=== PATIENT | female | born 1990 | race Caucasian/White ===

== ENCOUNTER 2020-12-24 12:43 | Emergency (ER) | payer BC, SELFPAY ==
[2020-12-24 13:42] VITALS: BP 131/74; PULSE 81; RESP 18; TEMP 36.7; O2SAT 97; BMI 57.1
[2020-12-24 16:29] VITALS: PULSE 94; RESP 18; O2SAT 99
--- NOTE | 2020-12-24 16:30 | CTR_ITS ---
PROCEDURE INFORMATION: Exam: CT Abdomen And Pelvis With Contrast Exam date and time: 12/24/2020 4:30 PM Age: 30 years old Clinical indication: Abdominal pain; Localized; Left lower quadrant (llq); Patient HX: Llq pain, n/v, blood in stool yesterday; Additional info: Abd pain TECHNIQUE: Imaging protocol: Computed tomography of the abdomen and pelvis with contrast. Radiation optimization: All CT scans at this facility use at least one of these dose optimization techniques: automated exposure control; mA and/or kV adjustment per patient size (includes targeted exams where dose is matched to clinical indication); or iterative reconstruction. Contrast material: OMNI 300; Contrast volume: 95 ml; Contrast route: INTRAVENOUS (IV); COMPARISON: No relevant prior studies available. RADIATION DOSE METRICS: Total DLP (mGy-cm): 2708.09 FINDINGS: Lungs: Lung bases are clear. Liver: The liver is normal. Gallbladder and bile ducts: The gallbladder is normal. There is no biliary dilation. Pancreas: The pancreas is unremarkable. Spleen: The spleen is moderately enlarged. Adrenal glands: The adrenal glands are unremarkable. Kidneys and ureters: Mild left hydronephrosis and diffuse hydroureter. 3 x 3 x 3 mm obstructive stone in the distal left ureter near the ureterovesical junction. No intrarenal stones. Mild hypoenhancement of the left kidney compared to the right. The right kidney and ureter are unremarkable. Stomach and bowel: The stomach is decompressed, preventing meaningful evaluation of wall thickness. The small bowel is nondilated. The colon is unremarkable. Appendix: The appendix is normal. Intraperitoneal space: There is no free air or significant intraperitoneal free fluid. Vasculature: The aorta is unremarkable. There is no aneurysm. Lymph nodes: There is no lymphadenopathy in the retroperitoneum, mesentery, pelvis or inguinal regions. Urinary bladder: The urinary bladder is decompressed, preventing meaningful evaluation of wall thickness. Reproductive: The uterus is unremarkable. There is no adnexal mass or large cyst. Bones/joints: Bones are unremarkable. Soft tissues: The abdominal wall is intact. CT/CT abdomen pelvis w con* [id number] IMPRESSION: 1. 3 mm obstructive stone in the distal left ureter near the ureterovesical junction producing mild hydronephrosis. 2. Incidental findings above. Radiation Dose CTDIVOL = (mGy): DLP = 2708.09 (mGy-cm)
[2020-12-24 16:33] LABS: Basophils % 0.3 %; Eosinophils # 0.1 10^3/uL (0.0-0.8); Eosinophils % 0.7 %; Hematocrit 44.4 % (37.0-47.0); Hemoglobin 13.7 g/dL (11.5-15.3); Lymphocytes # 1.9 10^3/uL (0.8-4.8); Lymphocytes % 14.3 %; Mean Corpuscular HGB Conc 30.9 g/dL (30.0-36.0); Mean Corpuscular Hemoglobin 25.9 pg (28.0-34.0); Mean Corpuscular Volume 84.1 fl (81-99); Mean Platelet Volume 8.7 fL (7.4-10.4); Monocytes # 0.6 10^3/uL (0.2-0.9); Monocytes % 4.8 %; Neutrophils # 10.36 10^3/uL (1.8-7.7); Neutrophils % 79.6 %; Nucleated Red Blood Cells % 0 %; Platelet Count 352 10^3/cmm (130-400); Red Blood Count 5.28 10^6/uL (4.1-5.3); Red Cell Distribution Width 14.6 % (12.1-15.1)
[2020-12-24] MEDS: sodium chloride 0.9% 1,000 ML 999 ML IV (16:37)
[2020-12-24] MEDS: ketorolac 30 mg/mL INJ IVP (16:39)
[2020-12-24] MEDS: ondansetron 2 mg/ML SDV 2 mL 4 MG IVP (16:39)
[2020-12-24 16:59] LABS: HCG, Serum Qual Negative (Negative)
--- NOTE | 2020-12-24 17:01 | ED_ITS ---
Documented by User: Harvey Means DO 12/27/20 12:45 HPI - Abdominal Pain General: Chief Complaint: Abdominal Pain Stated Complaint: Abdominal Pain Time Seen by Provider: 12/24/20 16:27 History of Present Illness: HPI narrative: 30-year-old female left upper quadrant abdominal pain. Began last night. She states she has had this in the past its come and gone. She had a little bit of hematochezia yesterday she feels constipated today she denies any dysuria urgency or frequency or hematuria. Patient has not had any fever at all. MD elicited complaint: abdominal pain Pertinent past history: constipation Onset (ago): day(s) Pain Consistency: constant Location: LUQ Severity: moderate Quality: cramping and aching Radiation: none Migration to: no migration Exacerbating factors: nothing Relieving factors: nothing Associated Symptoms: Reports anorexia, bloating, constipation, GI cramping, nausea and poor appetite; Denies belching, change in bowel habits, change in stool character, chills, coffee ground emesis, diarrhea, dyspepsia, dysuria, excessive flatus, fever(s), heartburn, hematochezia, hematuria, hematemesis, fecal incontinence, loose stools, melena, syncope and vomiting Review of Systems Const: Denies: fever(s) or chills ENMT: Denies: throat pain, ear or mastoid pain, nasal discharge or nasal congestion Card: Denies: syncope Resp: Denies: dyspnea, productive cough or non-productive cough GI: Reports: nausea, constipation, bloating and GI cramping; Denies: vomiting, hematemesis, coffee ground emesis, heartburn, diarrhea, belching, excessive flatus, fecal incontinence, change in bowel habits, change in stool character, hematochezia or melena : Denies: dysuria or hematuria Skin/Breast: Denies: rash or pruritus PFSH ED PFSH: Family History Grandmother Breast cancer Maternal--dx age Physical Exam Const: COMMON NORMALS: no acute distress GENERAL APPEARANCE: cooperative and comfortable ORIENTATION/CONSCIOUSNESS: Yes awake, Yes oriented to person, Yes oriented to place and Yes oriented to time HENMT: COMMON NORMALS: normocephalic, atraumatic and hearing grossly normal bilaterally HEAD & SCALP: normocephalic and atraumatic Neck/C-Spine: COMMON NORMALS: no JVD Resp: COMMON NORMALS: normal respiratory effort, No retractions, No use of accessory muscles and clear to auscultation bilaterally AUSCULTATION: clear to auscultation bilaterally Cardio: COMMON NORMALS: no JVD, regular rate, regular rhythm and No murmurs present (Cardio) RATE: regular rate RHYTHM: regular rhythm GI: AUSCULTATION: Yes normoactive bowel sounds PALPATION: Yes Tenderness to palpation present (GI) Details: RUQ and No Guarding due to palpation present (GI) Extremity: COMMON NORMALS: normal to inspection, capillary refill normal, no clubbing, cyanosis or edema, no calf tenderness and no pedal edema Neuro: SENSORIUM/ORIENTATION: Yes oriented to person, Yes oriented to place and Yes oriented to time Skin: COMMON NORMALS: no rashes or lesions noted GENERAL SKIN EXAM: no rashes or lesions noted Course Vital Signs: Vital signs: Vital Signs Temperature 98.1 F 12/24/20 13:42 Pulse Rate 88 12/24/20 20:09 Respiratory Rate 16 12/24/20 20:09 Blood Pressure 127/91 12/24/20 20:09 Pulse Oximetry 97 12/24/20 20:09 MDM - Abdominal Pain MDM Narrative: Medical decision making narrative: Care turned over to dr.. Robles at change of shift see his note for final diagnosis and disposition. Lab Data: Labs: Lab Results 12/24/20 12/24/20 12/24/20 Range/Units 16:28 16:28 16:28 WBC 13.0 H (4.0-10.0) 10^3/ uL RBC 5.28 (4.1-5.3) 10^6/u L Hgb 13.7 (11.5-15.3) g/dL Hct 44.4 (37.0-47.0) % MCV 84.1 (81-99) fl MCH 25.9 L (28.0-34.0) pg MCHC 30.9 (30.0-36.0) g/dL RDW 14.6 (12.1-15.1) % Plt Count 352 (130-400) 10^3/c mm MPV 8.7 (7.4-10.4) fL Neut % (Auto) 79.6 % Lymph % (Auto) 14.3 % [place] % (Auto) 4.8 % Eos % (Auto) 0.7 % Baso % (Auto) 0.3 % Neut # (Auto) 10.36 H (1.8-7.7) 10^3/u L Lymph # (Auto) 1.9 (0.8-4.8) 10^3/u L [place] # (Auto) 0.6 (0.2-0.9) 10^3/u L Eos # (Auto) 0.1 (0.0-0.8) 10^3/u L Baso # (Auto) 0.0 (0.0-0.1) 10^3/u L Nucleated RBC % (a uto) 0 % Nucleated RBCs # 0.0 /100WBC Sodium 138 (136-145) mmol/L Potassium 4.6 (3.5-5.1) mmol/L Chloride 101 (98-107) mmol/L Carbon Dioxide 26 (22-29) mmol/L Anion Gap 15.6 (5-19) BUN 16 (6-20) mg/dL Creatinine 0.9 (0.5-0.9) mg/dL GFR Calculation 72.6 L (90-130) mL/min Glucose 101 (65-115) mg/dL Calculated Osmolal ity 287 (285-295) mOsm/k g Calcium 8.9 (8.5-10.5) mg/dL Total Bilirubin 0.3 (0.15-1.2) mg/dL AST 19 (0-32) U/L ALT 21 (0-33) U/L Alkaline Phosphata se 86 (35-105) IU/L Total Protein 7.3 (6.6-8.7) g/dL Albumin 4.1 (3.5-5.2) g/dL Globulin 3.2 (1.3-4.6) g/dL Lipase 14 (13-60) U/L HCG, Qual Negative (Negative) Urine Color (Yellow) Urine Appearance (CLEAR) Urine pH (5-7) Ur Specific Gravit y (1.005-1.030) Urine Protein (Negative) Urine Glucose (UA) (Normal) Urine Ketones (Negative) Urine Blood (Negative) Urine Nitrate (Negative) Urine Bilirubin (Negative) Urine Urobilinogen (Negative) mg/dL Ur Leukocyte Dotty ase (Negative) Urine RBC (0-2) /hpf Urine WBC (0-5) /hpf Ur Squamous Epith Cells (0-5) /hpf Amorphous Sediment Urine Bacteria (NONE) /hpf 12/24/20 Range/Units 19:22 WBC (4.0-10.0) 10^3/ uL RBC (4.1-5.3) 10^6/u L Hgb (11.5-15.3) g/dL Hct (37.0-47.0) % MCV (81-99) fl MCH (28.0-34.0) pg MCHC (30.0-36.0) g/dL RDW (12.1-15.1) % Plt Count (130-400) 10^3/c mm MPV (7.4-10.4) fL Neut % (Auto) % Lymph % (Auto) % [place] % (Auto) % Eos % (Auto) % Baso % (Auto) % Neut # (Auto) (1.8-7.7) 10^3/u L Lymph # (Auto) (0.8-4.8) 10^3/u L [place] # (Auto) (0.2-0.9) 10^3/u L Eos # (Auto) (0.0-0.8) 10^3/u L Baso # (Auto) (0.0-0.1) 10^3/u L Nucleated RBC % (a uto) % Nucleated RBCs # /100WBC Sodium (136-145) mmol/L Potassium (3.5-5.1) mmol/L Chloride (98-107) mmol/L Carbon Dioxide (22-29) mmol/L Anion Gap (5-19) BUN (6-20) mg/dL Creatinine (0.5-0.9) mg/dL GFR Calculation (90-130) mL/min Glucose (65-115) mg/dL Calculated Osmolal ity (285-295) mOsm/k g Calcium (8.5-10.5) mg/dL Total Bilirubin (0.15-1.2) mg/dL AST (0-32) U/L ALT (0-33) U/L Alkaline Phosphata se (35-105) IU/L Total Protein (6.6-8.7) g/dL Albumin (3.5-5.2) g/dL Globulin (1.3-4.6) g/dL Lipase (13-60) U/L HCG, Qual (Negative) Urine Color Yellow (Yellow) Urine Appearance Clear (CLEAR) Urine pH 6.5 (5-7) Ur Specific Gravit y 1.005 (1.005-1.030) Urine Protein 1+ H (Negative) Urine Glucose (UA) Norm (Normal) Urine Ketones Negative (Negative) Urine Blood 2+ H (Negative) Urine Nitrate Negative (Negative) Urine Bilirubin Neg (Negative) Urine Urobilinogen Norm (Negative) mg/dL Ur Leukocyte Dotty ase Negative (Negative) Urine RBC 5-10 H (0-2) /hpf Urine WBC 0-4 H (0-5) /hpf Ur Squamous Epith Cells 10-15 H (0-5) /hpf Amorphous Sediment Not Reportable Urine Bacteria 2+ H (NONE) /hpf Discharge Plan Discharge Patient Disposition: Home Clinical Impression: Kidney stone Condition: Stable Prescriptions: New hydrocodone-acetaminophen 5-325 mg tablet 1 tab PO Q6H PRN (Reason: pain) Qty: 14 RF: 0 ondansetron 4 mg tablet,disintegrating 4 mg PO Q6H PRN (Reason: nausea and vomiting) Qty: 14 RF: 0 No Action Tylenol 325 mg Tablet 325 - 650 mg PO QID MDD SEE PHARMACY COMMENT PRN (Reason: PAIN/HEADACHE) RF: 0 ibuprofen 200 mg Tablet 200 - 400 mg PO Q6H PRN (Reason: PAIN/FEVER) RF: 0 Discharge Orders: Discharge ED (Routine); Ordered 12/24/20 Ordered By: Chencho Robles Referrals: Aaron Correa DO [Primary Care Provider] - 1-3 days Discharge Diet: Advance as tolerated Discharge Activity: Resume usual activity Patient Instructions: Kidney Stones (ED), Opioid Safety Coding Level of Care Code ED Administrative Staff Supervisor for Chg Fwd Documented by User: Chencho Robles MD 12/24/20 20:12 HPI - Abdominal Pain General: Chief Complaint: Abdominal Pain Stated Complaint: Abdominal Pain Time Seen by Provider: 12/24/20 16:27 PFSH ED PFSH: Family History Grandmother Breast cancer Maternal--dx age Course Vital Signs: Vital signs: Vital Signs Temperature 98.1 F 12/24/20 13:42 Pulse Rate 88 12/24/20 20:09 Respiratory Rate 16 12/24/20 20:09 Blood Pressure 127/91 12/24/20 20:09 Pulse Oximetry 97 12/24/20 20:09 MDM - Abdominal Pain MDM Narrative: Medical decision making narrative: Patient presents here with abdominal pain CT showed a kidney stone likely causing this pain. Blood work otherwise normal. She feels much improved here. Will prescribe her pain meds and have her follow-up with Dr. Myers. She is to use his urine strainer at home. She is return if worsening. Lab Data: Labs: Lab Results 12/24/20 12/24/20 12/24/20 Range/Units 16:28 16:28 16:28 WBC 13.0 H (4.0-10.0) 10^3/ uL RBC 5.28 (4.1-5.3) 10^6/u L Hgb 13.7 (11.5-15.3) g/dL Hct 44.4 (37.0-47.0) % MCV 84.1 (81-99) fl MCH 25.9 L (28.0-34.0) pg MCHC 30.9 (30.0-36.0) g/dL RDW 14.6 (12.1-15.1) % Plt Count 352 (130-400) 10^3/c mm MPV 8.7 (7.4-10.4) fL Neut % (Auto) 79.6 % Lymph % (Auto) 14.3 % [place] % (Auto) 4.8 % Eos % (Auto) 0.7 % Baso % (Auto) 0.3 % Neut # (Auto) 10.36 H (1.8-7.7) 10^3/u L Lymph # (Auto) 1.9 (0.8-4.8) 10^3/u L [place] # (Auto) 0.6 (0.2-0.9) 10^3/u L Eos # (Auto) 0.1 (0.0-0.8) 10^3/u L Baso # (Auto) 0.0 (0.0-0.1) 10^3/u L Nucleated RBC % (a uto) 0 % Nucleated RBCs # 0.0 /100WBC Sodium 138 (136-145) mmol/L Potassium 4.6 (3.5-5.1) mmol/L Chloride 101 (98-107) mmol/L Carbon Dioxide 26 (22-29) mmol/L Anion Gap 15.6 (5-19) BUN 16 (6-20) mg/dL Creatinine 0.9 (0.5-0.9) mg/dL GFR Calculation 72.6 L (90-130) mL/min Glucose 101 (65-115) mg/dL Calculated Osmolal ity 287 (285-295) mOsm/k g Calcium 8.9 (8.5-10.5) mg/dL Total Bilirubin 0.3 (0.15-1.2) mg/dL AST 19 (0-32) U/L ALT 21 (0-33) U/L Alkaline Phosphata se 86 (35-105) IU/L Total Protein 7.3 (6.6-8.7) g/dL Albumin 4.1 (3.5-5.2) g/dL Globulin 3.2 (1.3-4.6) g/dL Lipase 14 (13-60) U/L HCG, Qual Negative (Negative) Urine Color (Yellow) Urine Appearance (CLEAR) Urine pH (5-7) Ur Specific Gravit y (1.005-1.030) Urine Protein (Negative) Urine Glucose (UA) (Normal) Urine Ketones (Negative) Urine Blood (Negative) Urine Nitrate (Negative) Urine Bilirubin (Negative) Urine Urobilinogen (Negative) mg/dL Ur Leukocyte Dotty ase (Negative) Urine RBC (0-2) /hpf Urine WBC (0-5) /hpf Ur Squamous Epith Cells (0-5) /hpf Amorphous Sediment Urine Bacteria (NONE) /hpf 12/24/20 Range/Units 19:22 WBC (4.0-10.0) 10^3/ uL RBC (4.1-5.3) 10^6/u L Hgb (11.5-15.3) g/dL Hct (37.0-47.0) % MCV (81-99) fl MCH (28.0-34.0) pg MCHC (30.0-36.0) g/dL RDW (12.1-15.1) % Plt Count (130-400) 10^3/c mm MPV (7.4-10.4) fL Neut % (Auto) % Lymph % (Auto) % [place] % (Auto) % Eos % (Auto) % Baso % (Auto) % Neut # (Auto) (1.8-7.7) 10^3/u L Lymph # (Auto) (0.8-4.8) 10^3/u L [place] # (Auto) (0.2-0.9) 10^3/u L Eos # (Auto) (0.0-0.8) 10^3/u L Baso # (Auto) (0.0-0.1) 10^3/u L Nucleated RBC % (a uto) % Nucleated RBCs # /100WBC Sodium (136-145) mmol/L Potassium (3.5-5.1) mmol/L Chloride (98-107) mmol/L Carbon Dioxide (22-29) mmol/L Anion Gap (5-19) BUN (6-20) mg/dL Creatinine (0.5-0.9) mg/dL GFR Calculation (90-130) mL/min Glucose (65-115) mg/dL Calculated Osmolal ity (285-295) mOsm/k g Calcium (8.5-10.5) mg/dL Total Bilirubin (0.15-1.2) mg/dL AST (0-32) U/L ALT (0-33) U/L Alkaline Phosphata se (35-105) IU/L Total Protein (6.6-8.7) g/dL Albumin (3.5-5.2) g/dL Globulin (1.3-4.6) g/dL Lipase (13-60) U/L HCG, Qual (Negative) Urine Color Yellow (Yellow) Urine Appearance Clear (CLEAR) Urine pH 6.5 (5-7) Ur Specific Gravit y 1.005 (1.005-1.030) Urine Protein 1+ H (Negative) Urine Glucose (UA) Norm (Normal) Urine Ketones Negative (Negative) Urine Blood 2+ H (Negative) Urine Nitrate Negative (Negative) Urine Bilirubin Neg (Negative) Urine Urobilinogen Norm (Negative) mg/dL Ur Leukocyte Dotty ase Negative (Negative) Urine RBC 5-10 H (0-2) /hpf Urine WBC 0-4 H (0-5) /hpf Ur Squamous Epith Cells 10-15 H (0-5) /hpf Amorphous Sediment Not Reportable Urine Bacteria 2+ H (NONE) /hpf Imaging Data ^: CT Abd/Pel: Attestation: I personally reviewed and interpreted this imaging study as follows: Radiologist's impression: [email or web address] [address] [address] Scan Report Signed Patient: Jenni Keller Unit #: [id number] : 1990 Age/Sex: 30 / F ADM Date: 12/24/20 Loc: ER Room/Bed: Attending Dr: Ordering Provider/Ordering MD: Harvey Means DO Date of Service: 12/24/20 Procedure(s): CT abdomen pelvis w con* [id number] Accession Number(s): [id number] Report Number: [id number] PROCEDURE INFORMATION: Exam: CT Abdomen And Pelvis With Contrast Exam date and time: 12/24/2020 4:30 PM Age: 30 years old Clinical indication: Abdominal pain; Localized; Left lower quadrant (llq); Patient HX: Llq pain, n/v, blood in stool yesterday; Additional info: Abd pain TECHNIQUE: Imaging protocol: Computed tomography of the abdomen and pelvis with contrast. Radiation optimization: All CT scans at this facility use at least one of these dose optimization techniques: automated exposure control; mA and/or kV adjustment per patient size (includes targeted exams where dose is matched to clinical indication); or iterative reconstruction. Contrast material: OMNI 300; Contrast volume: 95 ml; Contrast route: INTRAVENOUS (IV); COMPARISON: No relevant prior studies available. RADIATION DOSE METRICS: Total DLP (mGy-cm): 2708.09 FINDINGS: Lungs: Lung bases are clear. Liver: The liver is normal. Gallbladder and bile ducts: The gallbladder is normal. There is no biliary dilation. Pancreas: The pancreas is unremarkable. Spleen: The spleen is moderately enlarged. Adrenal glands: The adrenal glands are unremarkable. Kidneys and ureters: Mild left hydronephrosis and diffuse hydroureter. 3 x 3 x 3 mm obstructive stone in the distal left ureter near the ureterovesical junction. No intrarenal stones. Mild hypoenhancement of the left kidney compared to the right. The right kidney and ureter are unremarkable. Stomach and bowel: The stomach is decompressed, preventing meaningful evaluation of wall thickness. The small bowel is nondilated. The colon is unremarkable. Appendix: The appendix is normal. Intraperitoneal space: There is no free air or significant intraperitoneal free fluid. Vasculature: The aorta is unremarkable. There is no aneurysm. Lymph nodes: There is no lymphadenopathy in the retroperitoneum, mesentery, pelvis or inguinal regions. Urinary bladder: The urinary bladder is decompressed, preventing meaningful evaluation of wall thickness. Reproductive: The uterus is unremarkable. There is no adnexal mass or large cyst. Bones/joints: Bones are unremarkable. Soft tissues: The abdominal wall is intact. CT/CT abdomen pelvis w con* [id number] IMPRESSION: 1. 3 mm obstructive stone in the distal left ureter near the ureterovesical junction producing mild hydronephrosis. 2. Incidental findings above. Radiation Dose CTDIVOL = (mGy): DLP = 2708.09 (mGy-cm) Dictated By: Alvarado Farias MD Signed By: Alvarado Farias MD Signed Date/Time: 12/24/201849 DD/ 1848 Discharge Plan Discharge Patient Disposition: Home Clinical Impression: Kidney stone Condition: Stable Prescriptions: New hydrocodone-acetaminophen 5-325 mg tablet 1 tab PO Q6H PRN (Reason: pain) Qty: 14 RF: 0 ondansetron 4 mg tablet,disintegrating 4 mg PO Q6H PRN (Reason: nausea and vomiting) Qty: 14 RF: 0 No Action Tylenol 325 mg Tablet 325 - 650 mg PO QID MDD SEE PHARMACY COMMENT PRN (Reason: PAIN/HEADACHE) RF: 0 ibuprofen 200 mg Tablet 200 - 400 mg PO Q6H PRN (Reason: PAIN/FEVER) RF: 0 Discharge Orders: Discharge ED (Routine); Ordered 12/24/20 Ordered By: Chencho Robles Referrals: Aaron Correa DO [Primary Care Provider] - 1-3 days Discharge Diet: Advance as tolerated Discharge Activity: Resume usual activity Patient Instructions: Kidney Stones (ED), Opioid Safety Coding Level of Care Code ED Administrative Staff Supervisor for Chloé Botello
[2020-12-24 17:02] LABS: Alanine Aminotransferase 21 U/L (0-33); Albumin Level 4.1 g/dL (3.5-5.2); Alkaline Phosphatase 86 IU/L (35-105); Anion Gap 15.6 (5-19); Aspartate Amino Transferase 19 U/L (0-32); Blood Urea Nitrogen 16 mg/dL (6-20); Calcium 8.9 mg/dL (8.5-10.5); Carbon Dioxide 26 mmol/L (22-29); Chloride 101 mmol/L (98-107); Globulin 3.2 g/dL (1.3-4.6); Glomerular Filtration Rate 72.6 mL/min (90-130); Glucose 101 mg/dL (65-115); Lipase 14 U/L (13-60); Osmolality Calculated 287 mOsm/kg (285-295); Potassium 4.6 mmol/L (3.5-5.1); Sodium 138 mmol/L (136-145); Total Bilirubin 0.3 mg/dL (0.15-1.2); Total Protein 7.3 g/dL (6.6-8.7)
[2020-12-24 19:27] VITALS: PULSE 89; RESP 16; O2SAT 96
[2020-12-24 19:42] LABS: Add Urine Microscopic? YES; Bilirubin Urine Neg (Negative); Blood Urine 2+ (Negative); Glucose Urine UA Norm (Normal); Ketones Urine Negative (Negative); Leukocyte Esterase Urine Negative (Negative); Nitrate Urine Negative (Negative); Protein Urine 1+ (Negative); Specific Gravity, Urine 1.005 (1.005-1.030); Urine Appearance Clear (CLEAR); Urine Color Yellow (Yellow); Urobilinogen Urine Norm (Negative); WBC Urine 0-4 /hpf (0-5); pH Urine 6.5 (5-7)
[2020-12-24 19:43] LABS: Add Urine Culture? No; Bacteria Urine 2+ /hpf
[2020-12-24 20:09] VITALS: BP 127/91; PULSE 88; RESP 16; O2SAT 97
--- NOTE | 2020-12-24 20:09 | PC.NURSE ---
190 Report from DARREL Wise
--- NOTE | 2020-12-26 11:29 | DCPLANNER ---
direct marketing manager had message to schedule a follow up appointment for patient with Dr. Myers. direct marketing manager called the office of Dr. Myers, spoke with Juliana, gave clinic patients information. direct marketing manager was told that patients information would be printed and reviewed. Clinic will call patient with appointment information.
--- NOTE | 2020-12-28 08:11 | DCPLANNER ---
Patient has a follow up appointment scheduled for Thursday, January 02, 2021 at 11:[address] Myers. Clinic will call patient with appointment information.
--- NOTE | 2021-01-11 09:28 | DCPLANNER ---
Patient had a follow up scheduled for 01.02.[address] Myers - appointment was rescheduled.
== END 2020-12-24 20:11 | disposition home or self-care (01) ==
PROVIDERS: Physician Assistant; Emergency Provider Emergency Medicine; PCP Internal Medicine
DX: N20.0 Calculus of kidney (principal)
CPT/HCPCS: 74177; 80053; 81001; 83690; 84703; 85025; 96361; 96374; 96375; 99284; J1885; J2405; J7030; Q9967

== ENCOUNTER 2021-01-17 13:17 | Outpatient (CLI) | payer BC, SELFPAY ==
--- NOTE | 2021-01-17 13:30 | XR_ITS ---
WS: [id number] Exam: XR KUB [id number] Date/Time of Exam: 01/17/2021 1:23 PM Reason For Exam: urolithiasis 3 mm calcification superimposes the left kidney may represent a small renal calculus. There are 3 sma ll left pelvic calcifications noted which are nonspecific in appearance. No bowel obstruction or free air. No organ enlargement. Regional bony elements appear normal. XR/XR KUB [id number] IMPRESSION: 1. 3 mm calcification superimposing left kidney that may represent a small fatuma l stone. 2. 3 small left pelvic calcifications which are nonspecific in appearance. No a cute abdominal finding.
== END 2021-01-17 13:18 | disposition home or self-care (01) ==
PROVIDERS: PCP Internal Medicine; Visit Provider Urology
DX: N20.0 Calculus of kidney (principal)
CPT/HCPCS: 74018; 81003

== ENCOUNTER → 2021-01-18 11:00 | Outpatient (BNVA) | payer BC, SELFPAY | PROVIDERS: PCP Internal Medicine; Visit Provider Urology | DX: N20.1 Calculus of ureter (principal); Z20.822 Contact with and (suspected) exposure to COVID-19 | CPT/HCPCS: 87635 ==

== ENCOUNTER 2021-01-21 09:49 | Outpatient (CLI) | payer BC, SELFPAY ==
--- NOTE | 2021-01-21 09:56 | XR_ITS ---
WS: [id number] XR KUB [id number] REASON FOR EXAM: URETERAL CALCULUS FINDINGS: Compared to the previous examination of 01/17/2021 and correlating with the CT scan of 12/24/2020 there has been a change in the configuration of the 3 calcifications in the left pelvis. The most inferior of these likely represents further distal migration of distal left ureteral calculus. No other significant abnormality is identified. XR/XR KUB [id number] IMPRESSION: Further distal migration of distal left ureteral calculus.
== END 2021-01-21 09:50 | disposition home or self-care (01) ==
LOC: RAD 09:53
PROVIDERS: PCP Internal Medicine; Visit Provider Urology
DX: N20.1 Calculus of ureter (principal)
CPT/HCPCS: 74018; 81003

== ENCOUNTER → 2021-01-24 11:20 | Day surgery (SDC) | payer BC, SELFPAY ==
[2021-01-23 12:14] VITALS: BMI 58.3
--- NOTE | 2021-01-24 11:29 | XR_ITS ---
WS: [id number] XR KUB [id number] REASON FOR EXAM: Preop left ureteroscopy FINDINGS: On the previous abdomen and pelvis examination. Calcifications are seen in the left mid and lower pel vis. The most distal was felt to represent previously diagnosed distal left ureteral calculus. On the current examination only the 2 more superior calcifications remain readily identifiable positi on is unchanged compared to the previous examinations. XR/XR KUB [id number] IMPRESSION: Third calcification in the left pelvis presumed to be the distal left ureteral calculus is no longer identifiable.
[2021-01-24 11:53] VITALS: BP 159/92; PULSE 100; RESP 16; TEMP 36.6; O2SAT 100
[2021-01-24] MEDS: sodium chloride 0.9% 1,000 ML 30 ML IV (11:55)
[2021-01-24 11:58] LABS: OR HCG Qualitative Urine Negative (Negative)
--- NOTE | 2021-01-24 12:21 | W.PM.OPSUD ---
Surgery/Procedure H&P Update DATE OF PROCEDURE: January 24, 2021 DATE H&P PERFORMED: 01/21/21 H&P UPDATE INFORMATION: I have reviewed H&P completed within last 30 days, I have examined patient prior to procedure and Changes to prior documentation as noted here CHANGES TO PREVIOUS DOCUMENTATION: Reviewed her preoperative KUB and could not see the stone that had been visible on all the other images. She did have an episode where she lost control of her urine with severe urgency much more than usual and that would have been the only time that she had not strain her urine. It occurred at night and in the dark. Offered her the option to continue with ureteroscopy to confirm presence or absence and treat if present versus holding on surgery and repeating a KUB in a couple weeks or sooner if her symptoms recur. She has been asymptomatic for 2 days and she is elected therefore to go ahead and cancel surgery with follow-up in 2 weeks with a KUB. Encouraged to call back if she is having problems prior to that time PREOP DIAGNOSIS: Refractory left distal ureteral stone PLANNED PROCEDURE: Operation Date: 01/24/21 13:10 Proposed Procedures p Laser Lithotripsy 33277 [id number] 20916 N20.1(Not Applicable) - Antelmo Myers MD s Cystoscopy(Not Applicable) - Antelmo Myers MD s Retrograde Pyelogram(Left) - Antelmo Myers MD s Ureteroscopy(Not Applicable) - Antelmo Myers MD s Ureteral Stent Placement(Not Applicable) - Antelmo Myers MD
--- NOTE | 2021-01-24 12:45 | SUR.PREOP ---
1220 DR MANDEL HERE AND LOOKING AT KUB IN ROOM AND NO STONE SEEN,ASKED PT IF SHE PASSED IT AND SHE STATED THAT SHE DIDN'T THAT SHE KNEW OF, PT STATED THAT SHE HAD BEEN STRAINING HER URINE UP UNTIL SURGERY BUT ON THURSDAY SHE DIDN'T MAKE IT TO BATHROOM AND VOIDED ON HERSELF,PT IS NOT HAVING ANY PAIN AND GIVEN 2 CHOICES TO HAVE SX AND POSSIBLY NOT SEE NO STONE OR TO NOT HAVE SURGERY AND WAIT IF U DEVELOP ANY SYMPTOMS,PT STATED THAT SHE WANTED TO NOT HAVE SX, IV D/DIANA ALL INTACT AND PT UP IN ROOM AND D/C FOR HOME AMBULATING WITH ,LIDYA KWOK,DARREL (OR NURSE NOTIFIED)
== END ==
PROVIDERS: PCP Internal Medicine; Visit Provider Urology
PROC: 0TJB8ZZ Inspection of Bladder, Via Natural or Artificial Opening Endoscopic (ICD-10-PCS; CPT 52000; 2021-01-24 18:00)
PROC: (CPT 74420; 2021-01-24 18:00)
PROC: 0TJ98ZZ Inspection of Ureter, Via Natural or Artificial Opening Endoscopic (ICD-10-PCS; CPT 52351; 2021-01-24 18:00)
PROC: (CPT 50605; 2021-01-24 18:00)
DX: N20.1 Calculus of ureter (principal)
CPT/HCPCS: 74018; 81025; 84703; J7030

== ENCOUNTER → 2021-05-29 15:05 | Outpatient (BNVA) | payer OTHER, SELFPAY | PROVIDERS: PCP Internal Medicine; Visit Provider Nurse Practitioner Women's Health | DX: Z01.419 Encounter for gynecological examination (general) (routine) without abnormal findings (principal) | CPT/HCPCS: 87624 ==

== ENCOUNTER → 2021-06-05 15:59 | Outpatient (BNVA) | payer OTHER, SELFPAY | PROVIDERS: PCP Internal Medicine; Visit Provider Nurse Practitioner Women's Health | DX: E28.2 Polycystic ovarian syndrome (principal) | CPT/HCPCS: 81025; 88305 ==

== ENCOUNTER → 2021-11-19 16:16 | Outpatient (BNVA) | payer OTHER, SELFPAY | PROVIDERS: PCP Internal Medicine; Visit Provider Nurse Practitioner Women's Health | DX: N91.2 Amenorrhea, unspecified (principal) | CPT/HCPCS: 82670; 83001; 84702 ==

== ENCOUNTER → 2021-11-29 15:48 | Outpatient (BNVA) | payer OTHER, SELFPAY | PROVIDERS: PCP Internal Medicine; Visit Provider Nurse Practitioner Women's Health | DX: E28.2 Polycystic ovarian syndrome (principal); N94.10 Unspecified dyspareunia | CPT/HCPCS: 76830 ==

== ENCOUNTER → 2021-12-09 15:41 | Outpatient (BNVA) | payer OTHER, SELFPAY | PROVIDERS: PCP Internal Medicine; Visit Provider Obstetrics & Gynecology | DX: N91.2 Amenorrhea, unspecified (principal) | CPT/HCPCS: 83036; 83525; 84443 ==

== ENCOUNTER 2024-09-05 15:30 | Observation (INO) | payer BC, SELFPAY ==
[2024-09-05] VITALS (8 sets, daily range): BP systolic 111–136; BP diastolic 68–84; PULSE 70–91; RESP 16–18; TEMP 36.7–36.8; O2SAT 96–98; BMI 53.1
[2024-09-05 16:32] LABS: Basophils # 0.1 10^3/uL (0.0-0.1); Basophils % 0.5 %; Eosinophils # 0.2 10^3/uL (0.0-0.8); Eosinophils % 1.2 %; Hematocrit 44.1 % (36-47); Lymphocytes # 2.2 10^3/uL (0.8-4.8); Lymphocytes % 17.6 %; Mean Corpuscular HGB Conc 31.5 g/dL (30-55); Mean Corpuscular Hemoglobin 28.2 pg (27-33); Mean Corpuscular Volume 89.5 fl (85-98); Mean Platelet Volume 8.9 fL (7.4-10.4); Monocytes # 0.6 10^3/uL (0.2-0.9); Monocytes % 4.9 %; Neutrophils # 9.26 10^3/uL (1.8-7.7); Neutrophils % 75.5 %; Nucleated Red Blood Cells % 0 %; Platelet Count 291 10^3/cmm (157-399); Red Blood Count 4.93 10^6/uL (3.85-5.65); Red Cell Distribution Width 13.3 % (12.1-15.1); White Blood Count 12.27 10^3/uL (3.29-11.43)
[2024-09-05 16:51] LABS: HCG, Serum Qual Negative (Negative)
[2024-09-05 16:52] LABS: Alanine Aminotransferase 21 U/L (0-33); Albumin Level 3.9 g/dL (3.5-5.2); Alkaline Phosphatase 63 U/L (35-105); Aspartate Amino Transferase 15 U/L (0-32); Blood Urea Nitrogen 11 mg/dL (6-20); Calcium 9.2 mg/dL (8.5-10.5); Carbon Dioxide 23 mmol/L (22-29); Chloride 103 mmol/L (98-107); Creatinine Clr Calc Pharmacy 182.2546; Globulin 2.9 g/dL (1.3-4.6); Glomerular Filtration Rate 113.1 mL/min (90-130); Glucose 91 mg/dL (65-115); Lipase 19 U/L (13-60); Osmolality Calculated 285 mOsm/kg (285-295); Sodium 138 mmol/L (136-145); Total Bilirubin 0.4 mg/dL (0.15-1.2); Total Protein 6.8 g/dL (6.6-8.7)
--- NOTE | 2024-09-05 16:54 | CTR_ITS ---
PROCEDURE INFORMATION: Exam: CT Abdomen And Pelvis With Contrast Exam date and time: 09/05/2024 5:25 PM Age: 34 years old Clinical indication: Abdominal pain; Generalized; Prior surgery; Surgery date: 6+ months; Surgery type: Hysterectomy; Additional info: Abd pain TECHNIQUE: Imaging protocol: Computed tomography of the abdomen and pelvis with contrast. Radiation optimization: All CT scans at this facility use at least one of these dose optimization techniques: automated exposure control; mA and/or kV adjustment per patient size (includes targeted exams where dose is matched to clinical indication); or iterative reconstruction. Contrast material: OMNIPAQUE 350; Contrast volume: 100 ml; Contrast route: INTRAVENOUS (IV); COMPARISON: CT abdomen pelvis w con* [id number] 12/24/2020 6:02 PM RADIATION DOSE METRICS: Total DLP (mGy-cm): 1305.93 FINDINGS: Liver: Normal. No mass. Gallbladder and biliary ducts: Normal. No calcified stones. No ductal dilation. Pancreas: Normal. No ductal dilation. Spleen: Normal. No splenomegaly. Adrenal glands: Normal. No mass. Kidneys and ureters: Normal. No hydronephrosis. Stomach and bowel: Unremarkable. No obstruction. No mucosal thickening. Appendix: Acute appendicitis. The appendix is enlarged measuring up to 14 mm in diameter with adjacent fat stranding. Intraperitoneal space: Unremarkable. No free air. No significant fluid collection. Vasculature: Unremarkable. No abdominal aortic aneurysm. Lymph nodes: Unremarkable. No enlarged lymph nodes. Urinary bladder: Unremarkable as visualized. Reproductive: Unremarkable as visualized. Bones/joints: Unremarkable. No acute fracture. Soft tissues: Unremarkable. Other findings: No abscess. CT/CT abdomen pelvis w con* [id number] IMPRESSION: 1. Acute appendicitis. The appendix is enlarged measuring up to 14 mm in diameter with adjacent fat stranding. 2. No abscess.
--- NOTE | 2024-09-05 16:55 | ED_ITS ---
HPI - Abdominal Pain 2 General: Chief Complaint: Abdominal Pain Stated Complaint: Rad carmichael abd pain Time Seen by Provider: 09/05/24 16:48 Source: patient Mode of arrival: ambulatory Limitations: no limitations History of Present Illness: 34-year-old female states she has been h aving abdominal pain throughout the day states has been a sharp pain in her right lower quadrant states the pain is currently an 8 out of 10 she denies any fevers state is worse with palpation improved with rest. Associated Symptoms: Denies chills, diarrhea, fever(s), nausea and vomiting Related Data Home Medications ?Medication ?Instructions ?Recorded ?Confirmed acetaminophen 325 mg tablet 325 - 650 mg PO QID PRN 09/04/22 (Tylenol) PAIN/HEADACHE ibuprofen 200 mg tablet 200 - 400 mg PO Q6H PRN PAIN /FEVER 12/24/20 09/04/22 Previous Rx's ?Medication ?Instructions ?Recorded medroxyprogesterone 10 mg tablet 10 mg PO DAILY #30 ta bs 12/09/21 (Provera) albuterol sulfate 90 mcg/actuation 2 puff inhalation Q 6H PRN dyspnea 09/04/22 aerosol inhaler #6.7 grams azithromycin 250 mg tablet See Rx Instructions PO .COM PLEX #6 09/04/22 tabs prednisone 20 mg tablet 40 mg (2 x 20 mg) PO DAILY 5 days 09/04/22 #10 tabs Allergies Allergy/AdvReac Type Severity Reaction Status Date / Time No Known Allergies Allergy Verified 09/05/24 15:57 Review of Systems 2 Const: Denies: fever(s), chills, body aches or change in appetite ENMT: Denies: throat pain or dental pain Card: Denies: chest pain Resp: Denies: dyspnea GI: Reports: abdominal pain; Denies: nausea, vomiting or diarrhea Musc: Denies: neck pain or back pain Skin/Breast: Denies: rash Neuro: Denies: headache(s) PFSH ED 2 PFSH: Medical History No pertinent past medical history neghx: htn,dm,thyroid,dvt/pe PCP: Aaron Correa Cervical intraepithelial neoplasia grade 3 PCOS (polycystic ovarian syndrome) Dyspareunia in female Adhesions of cervix Morbid obesity Left ureteral calculus Surgical History History of hysteroscopy (~11/24/17) with D&C -----Diag: Cervical adhesions, Cervical stenosis, Secondary amenorrhea. Performed by Dr. Albert Sanderson at [facility] in [place], [place]. Findings: Had complete closure of cervical os due to prior LEEP. Retained menstrual blood found on opening of the cervix. History of ankle surgery Family History Grandmother Breast cancer MGM -- unsure of age of dx Denies family history of Colon cancer Ovarian cancer Diabetes Heart disease Hypercholesteremia Hypertension Uterine cancer Thyroid disease Stroke Physical Exam 2 Const: COMMON NORMALS: no acute distress, patient oriented x3 and healthy appearing HENMT: COMMON NORMALS: normocephalic and atraumatic HEAD & SCALP: n ormocephalic and atraumatic Eye: COMMON NORMALS: conjunctivae normal CONJUNCTIVA: Yes conjunctivae normal Neck/C-Spine: COMMON NORMALS: full ROM and supple Chest: COMMONS NORMALS: normal inspection of the chest Resp: COMMON NORMALS: normal respiratory effort Cardio: COMMON NORMALS: regular rate, regular rhythm and No murmurs present (Cardio) RATE: regular rate RHYTHM: regular rhythm GI: COMMON NORMALS: Normal to inspection, nondistended, normoactive bowel sounds present, Soft to palpation and no masses PALPATION: Yes Soft to palpation and Yes Tenderness to palpation present (GI) Details: RLQ Extremity: COMMON NORMALS: normal to inspection and full ROM Neuro: COMMON NORMALS: patient oriented x3, moves all extremities and no focal motor deficits Psych: COMMON NORMALS: mental status grossly normal, Normal thought process present and cooperative THOUGHT PROCESS: Normal thought process present Skin: COMMON NORMALS: no rashes or lesions noted and no wounds GENERAL SKIN EXAM: no rashes or lesions noted Course 2 Vital Signs: Vital signs: Vital Signs Temperature 98.1 F 09/05/24 15:52 Pulse Rate 84 09/05/24 18:44 Blood Pressure 111/68 09/05/24 15:52 Pulse Oximetry 97 09/05/24 18:44 Oxygen Delivery Me thod Room Air 09/05/24 15:52 MDM - Abdominal Pain Medical Decision Making Patient presents here with abdominal pain CT does show appendicitis I spoke to surgeon will admit at this time. Will start antibiotics Medical Records I reviewed the patient's medical records. Lab Data I reviewed the patient's lab results. 09/05/24 16:21 09/05/24 16:21 Labs/Radiology: Radiology Impressions Abdomen/Pelvis CT 09/05/24 16:54 IMPRESSION: 1. Acute appendicitis. The appendix is enlarged measuring up to 14 mm in diameter with adjacent fat stranding. 2. No abscess. ADDENDUM: 09/05/24 1838 THIS REPORT CONTAINS FINDINGS THAT MAY BE CRITICAL TO PATIENT CARE. The findings were verbally communicated via telephone conference with TATY Gaitan at 6:36 PM CDT on 09/05/2024. The findings were acknowledged and understood. Laboratory Results WBC 12.27 10^3/uL (3.29-11.43) H 09/05/24 16:21 RBC 4.93 10^6/uL (3.85-5.65) 09/05/24 16:21 Hgb 13.90 g/dL (11.27-16.99) 09/05/24 16:21 Hct 44.1 % (36-47) 09/05/24 16:21 MCV 89.5 fl (85-98) 09/05/24 16:21 MCH 28.2 pg (27-33) 09/05/24 16:21 MCHC 31.5 g/dL (30-55) 09/05/24 16:21 RDW 13.3 % (12.1-15.1) 09/05/24 16:21 Plt Count 291 10^3/cmm (157-399) 09/05/24 16:21 MPV 8.9 fL (7.4-10.4) 09/05/24 16:21 Neut % (Auto) 75.5 % 09/05/24 16:21 Lymph % (Auto) 17.6 % 09/05/24 16:21 [place] % (Auto) 4.9 % 09/05/24 16:21 Eos % (Auto) 1.2 % 09/05/24 16:21 Baso % (Auto) 0.5 % 09/05/24 16:21 Neut # (Auto) 9.26 10^3/uL (1.8-7.7) H 09/05/24 16:21 Lymph # (Auto) 2.2 10^3/uL (0.8-4.8) 09/05/24 16:21 [place] # (Auto) 0.6 10^3/uL (0.2-0.9) 09/05/24 16:21 Eos # (Auto) 0.2 10^3/uL (0.0-0.8) 09/05/24 16:21 Baso # (Auto) 0.1 10^3/uL (0.0-0.1) 09/05/24 16:21 Nucleated RBC % (auto) 0 % 09/05/24 16:21 Nucleated RBCs # 0.0 /100WBC 09/05/24 16:21 Sodium 138 mmol/L (136-145) 09/05/24 16:21 Potassium 4.0 mmol/L (3.5-5.1) 09/05/24 16:21 Chloride 103 mmol/L (98-107) 09/05/24 16:21 Carbon Dioxide 23 mmol/L (22-29) 09/05/24 16:21 Anion Gap 16.0 (5-19) 09/05/24 16:21 BUN 11 mg/dL (6-20) 09/05/24 16:21 Creatinine 0.6 mg/dL (0.5-0.9) 09/05/24 16:21 GFR Calculation 113.1 mL/min (90-130) 09/05/24 16:21 Glucose 91 mg/dL (65-115) 09/05/24 16:21 Calculated Osmolality 285 mOsm/kg (285-295) 09/05/24 16:21 Calcium 9.2 mg/dL (8.5-10.5) 09/05/24 16:21 Total Bilirubin 0.4 mg/dL (0.15-1.2) 09/05/24 16:21 AST 15 U/L (0-32) 09/05/24 16:21 ALT 21 U/L (0-33) 09/05/24 16:21 Alkaline Phosphatase 63 U/L (35-105) 09/05/24 16:21 Total Protein 6.8 g/dL (6.6-8.7) 09/05/24 16:21 Albumin 3.9 g/dL (3.5-5.2) 09/05/24 16:21 Globulin 2.9 g/dL (1.3-4.6) 09/05/24 16:21 Lipase 19 U/L (13-60) 09/05/24 16:21 HCG, Qual Negative (Negative) 09/05/24 16:21 Urine Color Dark yellow (Yellow) A 09/05/24 16:30 Urine Appearance Cloudy (CLEAR) A 09/05/24 16:30 Urine pH 5.5 (5-7) 09/05/24 16:30 Ur Specific [place] 1.028 (1.005-1.030) 09/05/24 16:30 Urine Protein Trace (Negative) A 09/05/24 16: Urine Glucose (UA) Negative (Normal) 09/05/24 16: Urine Ketones Trace (Negative) 09/05/24 16:30 Urine Blood Negative (Negative) 09/05/24 16:30 Urine Nitrate Negative (Negative) 09/05/24 16:30 Urine Bilirubin 1+ (Negative) H 09/05/24 16:30 Urine Urobilinogen 1.0 mg/dL (Negative) 09/05/24 16:30 Ur Leukocyte Esterase Negative (Negative) 09/05/24 16:30 Urine RBC 6-10 /hpf (0-2) 09/05/24 16:30 Urine WBC 6-10 /hpf (0-5) 09/05/24 16:30 Ur Squamous Epith Cells 21-50 /hpf (0-5) H 09/05/24 16:30 Amorphous Sediment Not Reportable 09/05/24 16:30 Urine Bacteria 1+ /hpf (NONE) H 09/05/24 16:30 Hyaline Casts 7.85 /lpf 09/05/24 16:30 Urine Mucus 2+ /hpf 09/05/24 16:30 All radiology interpretation(s) finalized by discharge Discharge Plan Discharge Condition: Stable Coding Level of Care Code ED Registered Nurse Behavioral Health for Chloé Botello
[2024-09-05 17:01] LABS: Bilirubin Urine 1+ (Negative); Blood Urine Negative (Negative); Glucose Urine UA Negative (Normal); Ketones Urine Trace (Negative); Leukocyte Esterase Urine Negative (Negative); Nitrate Urine Negative (Negative); Protein Urine Trace (Negative); Specific Gravity, Urine 1.028 (1.005-1.030); Urine Appearance Cloudy (CLEAR); Urine Color Dark Yellow (Yellow); pH Urine 5.5 (5-7)
[2024-09-05 17:04] LABS: Add Urine Microscopic? YES; Hyaline Casts Urine 7.85 /lpf; Squamous Epithelial Cell Urine 21-50 /hpf (0-5)
[2024-09-05] MEDS: morphine 4 mg/mL SDV 1 mL IVP ×3 (17:06→22:38)
[2024-09-05] MEDS: ondansetron 2 mg/ML SDV 2 mL 4 MG IVP (17:06)
[2024-09-05 17:27] LABS: Bacteria Urine 1+ /hpf; Mucus Urine 2+ /hpf
[2024-09-05] MEDS: iohexol 350 mg/mL 500 mL Btl (per mL) IV (17:27)
[2024-09-05] MEDS: piperacillin-tazobactam 3.375 GM in sodium chloride 0.9% (plus) 50 ML IV (19:08)
--- NOTE | 2024-09-05 20:47 | P.HP_ITS ---
Providers/Chief Complaint 2 Admitting Physician: Rufus Parker MD Chief Complaint: Rad Jones sent, abd pain History of Present Illness Jenni Keller is a 34 year old female who presented with acute uncomplicated appendicitis. Patient reported right lower quadrant pain. Some nausea. Medications/Allergies Home Medications ?Medication ?Instructions ?Recorded ?Confirmed ?Last Taken ?Type acetaminophen 325 mg tablet 325 - 650 mg PO QID PRN 09/04/22 12/24/20 History (Tylenol) PAIN/HEADACHE ibuprofen 200 mg tablet 200 - 400 mg PO Q6H PRN PAIN /FEVER 12/24/20 09/04/22 Unknown History medroxyprogesterone 10 mg tablet 10 mg PO DAILY #30 ta bs 12/09/21 09/04/22 Unknown Rx (Provera) albuterol sulfate 90 mcg/actuation 2 puff inhalation Q 6H PRN dyspnea 09/04/22 09/04/22 Unknown Rx aerosol inhaler #6.7 grams azithromycin 250 mg tablet See Rx Instructions PO .COM PLEX #6 09/04/22 09/04/22 Unknown Rx tabs prednisone 20 mg tablet 40 mg (2 x 20 mg) PO DAILY 5 days 09/04/22 09/04/22 Unknown Rx #10 tabs Allergies Allergy/AdvReac Type Severity Reaction Status Date / Time No Known Allergies Allergy Verified 09/05/24 15:57 PFSH Acute 2 PFSH: Medical History No pertinent past medical history neghx: htn,dm,thyroid,dvt/pe PCP: Aaron Correa Cervical intraepithelial neoplasia grade 3 PCOS (polycystic ovarian syndrome) Dyspareunia in female Adhesions of cervix Morbid obesity Left ureteral calculus Surgical History History of hysteroscopy (~11/24/17) with D&C -----Diag: Cervical adhesions, Cervical stenosis, Secondary amenorrhea. Performed by Dr. Albert Sanderson at [facility] in [place], [place]. Findings: Had complete closure of cervical os due to prior LEEP. Retained menstrual blood found on opening of the cervix. History of ankle surgery Family History Grandmother Breast cancer MGM -- unsure of age of dx Denies family history of Colon cancer Ovarian cancer Diabetes Heart disease Hypercholesteremia Hypertension Uterine cancer Thyroid disease Stroke Vitals/I&O/Wt Last Vital Signs Temp 98.1 F 09/05/24 15:52 Pulse 89 09/05/24 20:37 Resp 16 09/05/24 20:37 BP 136/78 09/05/24 20:37 Pulse Ox 97 09/05/24 20:37 O2 Del Method Room Air 09/05/24 19:37 09/05/24 09/05/24 09/05/24 06:59 14:59 22:59 Intake Total 50 / 50 Balance 50 / 50 Weight last 48 hrs Weight 310 lb Physical Exam 2 Narrative: Chest: Unlabored breathing room air. No lymphadenopathy. Heart: Regular rate and rhythm. Abdomen: Soft, tender right lower quadrant, nondistended. No masses or lymphadenopathy. Data 09/05/24 16:21 09/05/24 16:21 A&P Assessment and plan (1) Acute appendicitis: Plan 34-year-old female who presents with acute uncomplicated appendicitis. Discussed risk and benefits and patient agrees to proceed with laparoscopic appendectomy possible open. PDMP PDMP Reviewed: Not Reviewed Attestations 2 Medical Necessity Statement*: IV antibiotics, IV fluids Coding Level of Care Code 56496 Diagnoses Acute appendicitis K35.80
[2024-09-05] MEDS: sodium chloride 0.9% 1,000 ML 100 ML IV (21:10)
[2024-09-06] VITALS (14 sets, daily range): BP systolic 94–134; BP diastolic 58–87; PULSE 74–89; RESP 11–18; TEMP 36.4–37.2; O2SAT 93–98
[2024-09-06] MEDS: piperacillin-tazobactam 3.375 GM in sodium chloride 0.9% (plus) 50 ML IV ×3 (00:50→16:33)
[2024-09-06] MEDS: morphine 4 mg/mL SDV 1 mL IVP ×3 (07:08→16:33)
--- NOTE | 2024-09-06 07:47 | P.PN_ITS ---
Subjective 2 Subjective: Right lower quadrant pain OR today Vitals/I&O/Wt Last Vital Signs Temp 98.1 F 09/06/24 03:32 Pulse 80 09/06/24 03:32 Resp 16 09/06/24 07:08 BP 128/86 09/06/24 03:32 Pulse Ox 97 09/06/24 03:32 O2 Del Method Room Air 09/05/24 21:18 09/05/24 09/06/24 09/06/24 22:59 06:59 14:59 Intake Total 50 / 50 50 / 100 Balance 50 / 50 50 / 100 Weight last 48 hrs Weight 310 lb 4 oz Weight 310 lb Weight 310 lb Physical Exam 2 Narrative: Chest: Unlabored breathing room air. No lymphadenopathy. Heart: Regular rate and rhythm. Abdomen: Soft, tender right lower quadrant, nondistended. No masses or lymphadenopathy. Data 09/05/24 16:21 09/05/24 16:21 A&P Assessment and plan (1) Acute appendicitis: Plan 34-year-old female admitted with acute uncomplicated appendicitis. Proceeding with laparoscopic appendectomy possible open today. PDMP PDMP Reviewed: Not Reviewed Attestations 2 Medical Necessity Statement*: IV fluids, IV antibiotics, IV pain meds. Anticipating less than 24 hours observation Coding Level of Care Code 11838 Diagnoses Acute appendicitis K35.80
[2024-09-06] MEDS: sodium chloride 0.9% 1,000 ML 100 ML IV (08:22)
--- NOTE | 2024-09-06 10:03 | PC.CHAP ---
Pastoral Care Encounter/Spiritual Assessment Type of Contact [] Declined telephone technician visit [] Patient/Family/Request visit [] Outpatient visit [] Follow-up visit [] Physician referral [] Code/Alert [x] Routine visit [] Staff referral [] Actively dying [] Patient sleeping [] Family support [] [] Out of room [] Palliative care [] [] Receiving care in room [] Pre-surgical visit [] Trauma [] Long length of stay [] ICU visit [] Other: Relational/Emotional Strength [x] Patient feels connected with others/family/visitors/staff [] Distress [] Loneliness/isolation [] Abandonment Spirituality of Patient [] Person of Sivan [] Attends Mormon of their Sivan [] Believes in Prayer [] Reads Bible or Mu-Ism materials [x] There are Spiritual issues to be addressed Mobile Solutions Architect Interventions [] Prayer [x] Active listening [x] Non-anxious presence [] Spiritual/emotional support [] Crisis/trauma care [] Spiritual counseling [] Bereavement support [] Provided bereavement packet [] Provided Bible/devotional materials [] Provided toy/stuffed animal, coloring book to patient or family member [] Provided Communion [] Anointing/[place] [] Salvation [x] Completed spiritual assessment [] Other: Impact on Illness or Injury [] Angry [] Fearful [] Anxious [] Often cries [] Exhaustion [] Unable to work [] Unable to attend oriental orthodox [] Unable to walk/stand [] Unable to read [] Unable to drive [] Unable to eat/drink [] Unable to sleep [] Unable to be with family [] Patient intubated [] Other: Summary Time spent with patient 5 min
--- NOTE | 2024-09-06 10:09 | ANES.PREANE2 ---
Pre-Anesthetic Assessment Height/Weight: Height 5 ft 4 in Weight 310 lb 4 oz Temp Pulse Resp BP Pulse Ox O2 Del Method 98.7 F 83 16 98/61 95 Room Air 09/06/24 07:30 09/06/24 07:30 09/06/24 07:30 09/06/24 07:30 09/06/24 07:30 09/06/24 07:30 Preop Diagnosis: Acute appendicitis Operation Date: 09/06/24 12:10 Proposed Procedures p Laparoscopic Appendectomy(Not Applicable) - Rufus Parker MD Was Beta Artemio taken within 24 hours: N/A Was Clonidine taken within 24 hours: N/A Last intake: Intake Last Liquid Date 09/05/24 Last Solid Date 09/04/24 Social Tobacco and No alcohol Exam alert, oriented x 3, clear to auscultation bilaterally and regular rate & rhythm Airway Submandibular: within normal limits Cervical ROM: within normal limits Mallampati: Class III Dentition: full Anesthetic Plan ASA status: 3 Anesthesia: General Other: No prior issues with anesthesia NPO since Patient admitted with acute appendicitis Current smoker Labs reviewed from last night, leukocytosis noted BMI of 53 Plan for GETA Medications/Allergies Home Medications ?Medication ?Instructions ?Recorded ?Confirmed ?Last Taken ?Type acetaminophen 325 mg tablet 325 - 650 mg PO QID PRN 12/24/20 09/06/24 12/24/20 History (Tylenol) PAIN/HEADACHE ibuprofen 200 mg tablet 200 - 400 mg PO Q6H PRN PAIN/FEVER 12/24/20 09/06/24 Unknown History albuterol sulfate 90 mcg/actuation 2 puff inhalation Q6H PRN dyspnea 09/04/22 09/06/24 Unknown Rx aerosol inhaler #6.7 grams famotidine 20 mg tablet 20 mg PO BID 09/06/24 09/06/24 Unknown History ondansetron 4 mg disintegrating 4 mg PO .Q4-6H PRN Nausea 09/06/24 09/06/24 Unknown History tablet Allergies Allergy/AdvReac Type Severity Reaction Status Date / Time No Known Allergies Allergy Verified 09/05/24 15:57 Current Medications Generic Name Dose Route Start Last Admin Trade Name Freq PRN Reason Stop Dose Admin Piperacillin Sod/Tazobactam 50 mls @ 12.5 mls/hr 09/06/24 01:00 09/06/24 08:21 Sod 3.375 gm/ Sodium Chloride IV 12.5 mls/hr Q8H ALYX Administration Protocol Sodium Chloride 1,000 mls @ 100 mls/hr 09/05/24 20:34 09/06/24 08:22 Sodium Chloride 0.9% IV 100 mls/hr .Q10H ALYX Administration Morphine Sulfate 4 mg 09/05/24 20:34 09/06/24 07:08 Morphine 4 Mg/Ml Sdv 1 Ml IVP 4 mg Q4H PRN Administration SEVERE PAIN PFSH Anesthesia Medical History No pertinent past medical history neghx: htn,dm,thyroid,dvt/pe PCP: Aaron Correa Cervical intraepithelial neoplasia grade 3 PCOS (polycystic ovarian syndrome) Dyspareunia in female Adhesions of cervix Morbid obesity Left ureteral calculus Surgical History History of hysteroscopy (~11/24/17) with D&C -----Diag: Cervical adhesions, Cervical stenosis, Secondary amenorrhea. Performed by Dr. Albert Sanderson at [facility] in [place], [place]. Findings: Had complete closure of cervical os due to prior LEEP. Retained menstrual blood found on opening of the cervix. History of ankle surgery Family History Grandmother Breast cancer MGM -- unsure of age of dx Denies family history of Colon cancer Ovarian cancer Diabetes Heart disease Hypercholesteremia Hypertension Uterine cancer Thyroid disease Stroke Data Anesthesia 09/05/24 16:21 09/05/24 16:21 Short CBC 09/05/24 Range/Units 16:21 WBC 12.27 H (3.29-11.43) 10^3/uL Hgb 13.90 (11.27-16.99) g/dL Hct 44.1 (36-47) % MCV 89.5 (85-98) fl Plt Count 291 (157-399) 10^3/cmm Neut % (Auto) 75.5 % Neut # (Auto) 9.26 H (1.8-7.7) 10^3/uL BMP 09/05/24 16:21 Sodium 138 Potassium 4.0 Chloride 103 Carbon Dioxide 23 BUN 11 Creatinine 0.6 Glucose 91 Calcium 9.2 Liver Function 09/05/24 Range/Units 16:21 Total Bilirubin 0.4 (0.15-1.2) mg/dL AST 15 (0-32) U/L ALT 21 (0-33) U/L Alkaline Phosphatase 63 (35-105) U/L Albumin 3.9 (3.5-5.2) g/dL Urine 09/05/24 Range/Units 16:30 Urine Color Dark yellow A (Yellow) Urine Appearance Cloudy A (CLEAR) Urine pH 5.5 (5-7) Ur Specific [place] 1.028 (1.005-1.030) Urine Protein Trace A (Negative) Urine Glucose (UA) Negative (Normal) Urine Ketones Trace (Negative) Urine Nitrate Negative (Negative) Urine Bilirubin 1+ H (Negative) Ur Leukocyte Esterase Negative (Negative) Urine RBC 6-10 (0-2) /hpf Urine WBC 6-10 (0-5) /hpf
--- NOTE | 2024-09-06 11:09 | PC.NURSE ---
per cm notes patient states she will set up a pcp once she gets home.
[2024-09-06] MEDS: sodium chloride 0.9% 1,000 ML 30 ML IV (14:13)
[2024-09-06] MEDS: lidocaine-epi 1% 20 mL INJ 10 ML INJECTION (14:55)
[2024-09-06] MEDS: BUPivacaine 0.25% INJ 10 mL INJECTION (14:58)
--- NOTE | 2024-09-06 15:31 | PM.OP ---
Operative Report Date of procedure: September 06, 2024 Pre-op diagnosis: Uncomplicated acute appendicitis Post-op diagnosis: Acute appendicitis with periappendiceal abscess Post-op findings: Acute appendicitis with appendiceal abscess. Washed out right iliac. Appendix resected successfully. Adequate hemostasis achieved. 19 [place] Sloan drain left in right paracolic gutter. Inspected staple line and cecum at the end of the case and it was intact. Terminal ileum and cecum intact at the end of the case. Procedure done: Laparoscopic appendectomy Implants: N/A Specimens removed/disposition: Appendix sent to pathology Pathology: Appendix sent to pathology Surgeon: Rufus Parker MD Licensed Practical Nurse: N/A Estimated blood loss (mL): 30 Complications: N/A Findings: Acute appendicitis with appendiceal abscess. Washed out right iliac. Appendix resected successfully. Adequate hemostasis achieved. 19 [place] Sloan drain left in right paracolic gutter. Inspected staple line and cecum at the end of the case and it was intact. Terminal ileum and cecum intact at the end of the case. Condition: stable Disposition: observation Brief History: 34-year-old female who presented with acute uncomplicated appendicitis. Discussed risk and benefits and patient agreed to proceed with laparoscopic appendectomy possible open. Procedure: After having a discussion about risks and benefits and obtaining consent, patient was brought to the OR. SCDs were functioning prior to intubation. Zosyn was given 45min prior to incision. General anesthesia was administered. Arms were tucked. A baez catheter was placed. The abdomen was prepped and draped in the usual sterile fashion. Insufflation was achieved using a Veress needle at Wick's point (15mmHg). A 5mm port was placed at the umbilicus using an optical view port. Then a 5mm port was placed suprapubically, and a 12mm port was placed in the left lower quadrant. The abdomen was inspected and no injuries were noted. Patient was placed in Trendelenburg and the table was rotated left. Using atraumatic bowel graspers the small bowel was placed on the left side of the abdomen, revealing the cecum, periappendiceal abscess, and inflammed appendix. The appendix was dissected off the pelvic side wall and the terminal ileum bluntly. The appendix was grasped and the mesoappendix was taken down using a Ligasure. The base of the appendix was found to be intact. I proceeded to staple off the appendix at its base using a laparoscopic stapler with a blue load. The appendix was then retrieved using an endocatch bag. The staple line on the cecum was inspected, and found to be intact. The terminal ileum as well as the cecum also appeared to be intact.I washed out the abdomen with 1 L of normal saline.adequate hemostasis was confirmed. A 19 [place] Sloan drain was left in the right pericolic gutter. The abdomen was desufflated and skin was closed using 4-0 monocryl and surgical glue. Baez was removed at the end of the case. The patient woke up from anesthesia and was transferred to PACU without any complications
[2024-09-06] MEDS: ondansetron 2 mg/ML SDV 2 mL 4 MG IVP (16:34)
--- NOTE | 2024-09-07 15:09 | PM.PN ---
Subjective Subjective: Status post lap appendectomy Pain under control Drain serosanguineous Vitals/I&O/Wt Last Vital Signs Temp 98.9 F 09/06/24 19:36 Pulse 80 09/06/24 19:36 Resp 18 09/06/24 19:36 BP 119/72 09/06/24 19:36 Pulse Ox 95 09/06/24 19:36 O2 Del Method Room Air 09/06/24 16:12 Weight last 48 hrs Weight 310 lb 4 oz Weight 310 lb Weight 310 lb Physical Exam Narrative: Chest: Unlabored breathing room air. No lymphadenopathy. Heart: Regular rate and rhythm. Abdomen: Soft, appropriately tender, nondistended. No masses or lymphadenopathy. Drain serosanguineous. Incisions clean dry intact Urinary Catheter Management: Jackson: Cath Placed During This Visit: yes, but has since been removed by the nurse Reason for Continuing Indwelling Catheter: Required Immobilization for Trauma or Surgery or Anesthesia Urinary Catheter Date of Insertion: 09/06/24 Urinary Catheter Time of Insertion: 14:30 Date Urinary Catheter Removed: 09/06/24 Time Urinary Catheter Discontinued: 15:37 Data 09/05/24 16:21 09/05/24 16:21 A&P Assessment and plan (1) Acute appendicitis: Plan 34-year-old female status post lap appendectomy. She is doing well. Cleared for discharge. PDMP PDMP Reviewed: Last Reviewed 09/06/24 16:39 EDT by Rufus Parker MD Attestations Medical Necessity Statement*: IV fluids, IV antibiotics, IV pain meds Coding Level of Care Code Acute Code for [facility] Diagnoses Acute appendicitis K35.80
== END 2024-09-06 19:44 | disposition home or self-care (01) ==
LOC: ER 18:51 → MEDSURG 20:16
PROVIDERS: Admitting Provider Student in an Organized Health Care Education/Training Program; Emergency Provider Emergency Medicine; Visit Provider Student in an Organized Health Care Education/Training Program
PROC: 0DTJ4ZZ Resection of Appendix, Percutaneous Endoscopic Approach (ICD-10-PCS; CPT 44970; principal; 2024-09-06 12:00)
DX: K35.80 Unspecified acute appendicitis (principal); E66.01 Morbid (severe) obesity due to excess calories; Z68.43 Body mass index [BMI] 50.0-59.9, adult; K38.8 Other specified diseases of appendix
CPT/HCPCS: 44970; 36415; 51702; 74177; 80053; 81001; 83690; 84703; 85025; 88304; 96365; 96375; 99285; G0378; J1171; J2250; J2270; J2405; J2543; J2704; J3010; J3490; J7030; J9999